=== PATIENT | female | born 1940 | race Caucasian/White ===

== ENCOUNTER → 2016-10-06 | Outpatient (CLI) | payer MEDICARE ==
[~2016-10-06] MED LIST: ASPIRIN PO; FISH OIL 1,0001 CAP PO; FLAGYL250 M1 PO; FLEXERIL10 MG PO; GABAPENTIN300 MG PO; GINSING; GLUCOSAMINE CHONDRO; HUMULIN N VIAL SUBQ; HYDROCHLOROTH12.5 MG PO; LIPO-FLAVONOID; LISINOPRIL PO; LYRICA PO; LYRICA75 MG PO; MACRODANTIN PO; MULTI-VITAMIN1 TAB PO; NEURONTIN300 MG; NORCO 7.5-3251 EACH PO; NOVOLIN N100 U/ML INJ; NOVOLIN R100 U/ML INJ; NOVOLIN R100 UNITS/; OMEGA PO; OYSTER SHELL C500 MG PO; OYSTER SHELL CA1 TA3 PO; OYSTER SHELL PO; POTASSIUM CITR10 MEQ PO; PRAVACHOL PO; SYNTHROID PO; TOPAMAX PO; TRAMADOL HCL50 M2 PO; ULTRAM PO; VALERIAN ROOT; VASCEPA1 GM PO; VICODIN 5/500 T1 TAB PO; VITAMIN D PO; ZYRTEC10 M2 PO; [UNRECOGNIZED DRUG - OTHER] PO; [UNRECOGNIZED DRUG - OTHER] PO
--- NOTE | ~2016-10-06 | CT2 ---
[facility] A Service of [facility] / [facility] RADIOLOGY TEXT RESULTS PATIENT: PRINCESS PALOMARES LOCATION: [facility] : 44 UNIT #: [id number] AGE: [address]: Ash Sanford MD SEX: F ORDER DR: [id number] [facility]. [place], [place] [address] [id number] O MR#: [id number] [facility] #: [id number] NAME: PRINCESS PALOMARES : 1940 SEX: F STUDY DATE/TIME: 10/06/2016 8:27 UNIT: [facility] ROOM: STUDY DESCRIPTION: CT Abd and Pelv W Cont Attending Physician: Ash Sanford M.D. Referring Physician: Ash Sanford M.D. Ordering Physician: Ash Sanford M.D. Primary Care Physician: Arya Whitt M.D. MEDICAL IMAGING REPORT This report is preliminary unless electronic signature is present EXAM CT abdomen and pelvis with contrast INDICATIONS Restaging colon cancer. Observation for metastatic disease. TECHNIQUE Contrast-enhanced CT of the abdomen and pelvis. This CT exam was performed with one or more of the following radiation dose reduction techniques: automatic exposure control, adjustment of mA and/or kV according to patient size, and iterative reconstruction. COMPARISON 07/09/2015. FINDINGS ADOMEN WITH CONTRAST: 5 mm nodule right lower lobe not seen on the previous study. Liver enlarged measuring 20.4 cm. There is a new area of band-like low-attenuation in the spleen measuring 2.4 x 2.1 cm with some associated capsular retraction. 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 Left kidney unremarkable. Previous right nephrectomy. The adrenal glands and pancreas are unremarkable. Previous cholecystectomy. Uncomplicated sigmoid diverticula. Moderate stool in the colon. Postoperative change at the hepatic flexure. No abnormal soft tissue. No abdominal adenopathy. PELVIS WITH CONTRAST: No pelvic mass or adenopathy. No aggressive appearing bone lesion. [facility] A Service of [facility] / [facility] RADIOLOGY TEXT RESULTS PATIENT: PRINCESS PALOMARES LOCATION: [facility] : 44 UNIT #: [id number] AGE: [address]: Ash Sanford MD SEX: F ORDER DR: IMPRESSION 1. No convincing evidence for metastatic disease in the abdomen or pelvis. 2. There is a 5 mm nodule in the right lower lobe, not seen on the previous study. Recommend attention on close interval followup. 3. Interval development of a band-like area of low attenuation in the spleen suspicious for evolving splenic infarct. 4. Other incidental findings detailed above. Dictated by... Josue Dillard M.D. THIS IS AN ELECTRONICALLY VERIFIED REPORT Josue Dillard M.D. at 10/07/2016 2:17 PM EED/pcl TD: 10/06/2016 16:57 JOB #: [id number] MEDICAL IMAGING REPORT Page 1 of 1 COPY
[2016-10-06 13:42] LABS: POC - CREATININE 1.02 mg/dL (0.44-1.03)
== END | disposition home or self-care (01) ==
LOC: CCAT 07-06 11:00
PROVIDERS: Internal Medicine Medical Oncology
DX: C18.2 Malignant neoplasm of ascending colon (principal); R91.1 Solitary pulmonary nodule
CPT/HCPCS: 74177; 82565; Q9967

== ENCOUNTER → 2016-11-30 | Day surgery (SDC) | payer MEDICARE ==
--- NOTE | ~2016-11-30 | OR ---
Unit #: [id number] #: [id number] Patient: PRINCESS PALOMARES [id number] [address] [place], [place] [address] [id number] O MR#: [id number] NAME: PRINCESS PALOMARES ROOM: Date of Procedure: 11/30/2016 Admission Date: 11/30/2016 Surgeon: Raymundo Sotomayor Jr., M.D. : 1940 Attending Physician: Raymundo Sotomayor Jr., M.D. Primary Care Physician: Arya Whitt M.D. OPERATIVE REPORT INDICATION FOR PROCEDURE The patient is a 76-year-old white female, who is over a year status post right colectomy for cancer. She has done well. Recently had an episode of some form of bowel obstruction, which now has cleared. She is brought to the endoscopy suite at this time for followup colonoscopy to rule out recurrent cancer or polyps. She understands the procedure including the risks, including that of perforation and bleeding, and consents. PREOPERATIVE DIAGNOSIS Past history of colon cancer and polyps. POSTOPERATIVE DIAGNOSIS One small polyp at 25 cm in the sigmoid that appeared to be benign as well as diverticulosis of left colon and postoperative changes on the transverse colon side. ANESTHESIA MAC anesthesia. PROCEDURE PERFORMED Flexible fiberoptic colonoscopy to the distal ileum with biopsy of a small polyp at 25 cm. DESCRIPTION OF PROCEDURE The patient was positioned in Montoya position with left side down. After being given MAC anesthesia, digital rectal examination was performed, which revealed no palpable mass or tenderness. No blood or stool within the rectal ampulla. The Olympus colonoscope was advanced through the anal canal up the rectum and retroflexed down to the area of the anorectal region. No evidence of fissures. No significant internal hemorrhoids. The scope was then straightened and advanced up the rectosigmoid into the sigmoid area at approximately 25 cm. There was a small hemorrhagic polyp, which was biopsied and basically removed with 2 bites with the cold biopsy forceps without bleeding. There were multiple diverticula in both the sigmoid and descending colon areas. The scope was then advanced up past these two areas and around the splenic flexure and transverse colon over the area of her anastomosis. The scope was advanced up the distal ileum and this all appeared normal with no evidence of any stenosis or abnormalities, and no evidence of any recurrent cancer. The scope was slowly removed. The patient tolerated the procedure well. There were no tumors, cancer, or AVMs. No other polyps except for the one described above, and no evidence of any colitis or diverticulitis. The caliber of Unit #: [id number] #: [id number] Patient: PRINCESS PALOMARES the colon appeared normal throughout without evidence of narrowing or obstruction. The scope was removed. The patient tolerated the procedure well and discharged in satisfactory condition. Dictated by... aRymundo Sotomayor Jr., M.D. JMB/nela TD: 11/30/2016 13:59 JOB #: [id number] CC: Raymundo Sotomayor Jr., M.D. Tamea D. Evans, M.D. OPERATIVE REPORT Page 1 of 1 X Raymundo Sotomayor MD X PROCEDURE OPERATIVE NOTE
== END | disposition home or self-care (01) ==
LOC: COPS 10:30
DX: Z12.11 Encounter for screening for malignant neoplasm of colon (principal); D12.5 Benign neoplasm of sigmoid colon; K57.30 Diverticulosis of large intestine without perforation or abscess without bleeding; E11.42 Type 2 diabetes mellitus with diabetic polyneuropathy; I10 Essential (primary) hypertension; M81.0 Age-related osteoporosis without current pathological fracture; M19.90 Unspecified osteoarthritis, unspecified site; E89.0 Postprocedural hypothyroidism; Z87.442 Personal history of urinary calculi; Z86.010 Personal history of colon polyps; Z85.038 Personal history of other malignant neoplasm of large intestine; Z85.3 Personal history of malignant neoplasm of breast; Z88.2 Allergy status to sulfonamides; Z88.5 Allergy status to narcotic agent; Z88.8 Allergy status to other drugs, medicaments and biological substances; Z79.4 Long term (current) use of insulin; Z79.899 Other long term (current) drug therapy; Z90.49 Acquired absence of other specified parts of digestive tract; Z90.710 Acquired absence of both cervix and uterus; Z90.5 Acquired absence of kidney; Z90.721 Acquired absence of ovaries, unilateral; Z98.49 Cataract extraction status, unspecified eye; Z98.890 Other specified postprocedural states
CPT/HCPCS: 82947; 88305